=== PATIENT | male | born 1975 | race African-American/Black ===

== ENCOUNTER 2016-11-11 11:20 | Emergency (ER) | payer SELFPAY ==
[2016-11-11 11:49] LABS: #Basophils 0.1 thou/uL (0.0-0.2); #Eosinphils 0.1 thou/uL (0.0-0.7); #Lymphocytes 2.7 thou/uL (1.20-3.40); #Monocytes 0.5 thou/uL (0.11-0.59); #Neutrophils 3.5 thou/uL (1.40-6.50); %Basophils 1.5 % (0.0-1.0); %Eosinophils 1.6 % (0.0-10.0); %Lymphocytes 39.4 % (21.0-51.0); %Monocytes 6.9 % (0.0-10.0); %Neutrophils 50.6 % (42.0-75.0); Hemoglobin 15.1 g/dL (14.0-18.0); Mean Corpuscular HGB CONC 29.9 g/dL (32.0-36.0); Mean Corpuscular Hemoglobin 24.5 pg (27.0-31.0); Mean Corpuscular Volume 81.9 fl (80.0-94.0); Platelet Count 250 thou/uL (130-400); RBC Distribution Width 13.1 % (11.5-14.5); Red Blood Cell (RBC) Count 6.16 mill/uL (4.70-6.10); White Blood Cell (WBC) Count 6.9 thou/uL (4.8-10.8)
[2016-11-11 12:00] LABS: ALT (SGPT) 23 U/L (8-55); AST (SGOT) 27 U/L (5-34); Alkaline Phosphatase 97 U/L (40-150); Anion Gap 13 mmol/L (10-20); BUN (Urea Nitrogen) 9 mg/dL (8.9-20.6); Bilirubin, Total 0.5 mg/dL (0.2-1.2); CK (CPK) 71 U/L (30-200); Calc. Creatinine Clearance 0 mL/min (70-130); Calcium 9.1 mg/dL (7.8-10.44); Carbon Dioxide 24 mmol/L (22-29); Chloride 104 mmol/L (98-107); Estimated GFR-MDRD Greater than 90; Globulin 3.8 g/dL (2.4-3.5); Glucose 256 mg/dL (70-105); Potassium 4.1 mmol/L (3.5-5.1); Protein, Total 7.8 g/dL (6.0-8.3); Sodium 137 mmol/L (136-145)
[2016-11-11 12:04] LABS: Acetaminophen Less than 6.0 mcg/mL (10.0-30.0); Alcohol Less than 10 mg/dL (Less than 10); Salicylate Less than 8.0 mg/dL (15.0-30.0)
[2016-11-11 12:09] LABS: CKMB 1.6 ng/mL (0-6.6); PLT Morphology Comment Appears Adequate; RBC Morphology Normal; Troponin I Less than 0.010 ng/mL (< 0.028)
[2016-11-11 12:18] LABS: Bilirubin Negative (Negative); Blood, Urine Negative (Negative); Clarity Clear (Clear); Glucose, Urine (Dipstick) >=1000 mg/dL (Negative); Leukocyte Negative (Negative); Nitrite Negative (Negative); Protein, Urine (Dipstick) Negative (Neg-Trace); Specific Gravity, Urine 1.015 (1.005-1.030)
--- NOTE | 2016-11-11 12:29 | CT ---
CT OF THE BRAIN WITHOUT CONTRAST: Date: 11/11/16 No prior films were available for comparison. FINDINGS: There are some patchy low density areas in the left frontal lobe. A stroke is presumed, but the age is indeterminate. I have no old scans to compare with. MRI could date this better and also provide b hesham resolution. The parenchyma was otherwise showing no acute changes. No intracranial bleeding or mass was seen. There may be a small lacunar infarct in the high left parietal region. The ventricle s are normal in size with no shift. There is some mucosal thickening in the sphenoid sinus. The mast oid air cells are clear. IMPRESSION: Patchy low density in the left frontal lobe. Stroke presumed, age-indeterminate. In the absence of o ld studies to compare with, a MRI is recommended to better define the abnormality here and potential ly determinate if this is acute or old. Findings discussed with Dr. Lux at 1206 hours on 11/11/16. CODE CR. POS: HOME
[2016-11-11 12:30] LABS: Amphetamine Not Detected (NotDetected); Barbiturates Screen Not Detected (NotDetected); Benzodiazepine Screen Not Detected (NotDetected); Cocaine Metabolite Screen Not Detected (NotDetected); Medtox Control Line Valid? VALID (VALID); Methadone Not Detected (NotDetected); Methamphetamine Not Detected (NotDetected); Opiate Screen Not Detected (NotDetected); Oxycodone Screen Not Detected (NotDetected); Phencyclidine (PCP) Not Detected (NotDetected); THC/Cannabinoid Screen Not Detected (NotDetected); Tricyclic Screen Not Detected (NotDetected)
== END 2016-11-11 13:05 | disposition short-term general hospital (02) ==
LOC: BURERS 11:20
DX: I63.9 Cerebral infarction, unspecified (principal); E11.9 Type 2 diabetes mellitus without complications; F17.210 Nicotine dependence, cigarettes, uncomplicated; I10 Essential (primary) hypertension
CPT/HCPCS: 36416; 70450; 80053; 80306; 80307; 81003; 82140; 82550; 82553; 84443; 84484; 85025; 93005

== ENCOUNTER 2017-01-06 10:41 | Outpatient (CLI) | payer MEDICAID ==
--- NOTE | 2017-01-06 21:02 | RAD ---
LUMBAR SPINE THREE VIEWS: Date: 01-06-17 FINDINGS: No fracture, recent or remote, was appreciated. The disc spaces are all normal in height. There are no significant arthritic changes. The SI joints and hip joints appear normal. Very slight downslopin g of the superior endplates of T12-L1 is usually physiologic in this age group. IMPRESSION: No significant findings. POS: HOME
== END 2017-01-06 10:42 | disposition home or self-care (01) ==
LOC: BURRAD 10:41
PROVIDERS: ATTEND Family Medicine
DX: M54.5 Low back pain (principal)
CPT/HCPCS: 72100